=== PATIENT | male | born 1940 | race Caucasian/White ===

== ENCOUNTER 2018-05-31 08:44 | Emergency (ER) | payer MEDICARE, OTHER ==
[2018-05-31] MEDS ORDERED: Famotidine TAB* 20 MG PO ONE (08:57)
[2018-05-31] MEDS ORDERED: Al Hydrox/Mg Hydrox/Simet LIQ* 30 ML UDC PO ONE (08:57)
[2018-05-31] MEDS ORDERED: Lidocaine 2% VISCOUS* 15 ML UDC PO ONE (08:57)
[2018-05-31] MEDS ORDERED: Pantoprazole IV* 40 MG IV ONE (08:57)
--- NOTE | 2018-05-31 09:04 | ED ---
Abdominal Pain/Male - HPI Summary HPI Summary: Patient is a 77 y/o M w/ c/o upper abdominal pain. Per triage note, upper abd pain onset 1 am.feels nauseated intermittantly.hx of ulcers in the past. Pain is rated 5/10 and described as sharp in the room. Pain is not noted to radiate. He notes pain has lessened since onset. Patient states he has had abdominal pain previously but notes that he has not had "this type" of pain and not at such a high intensity. He denies constipation diarrhea, fever, and dark/maroon colored stool. He reports medication fo HTN. No major abdominal surgeries are reported. No Hx of diverticulitis in patient is noted. He states ulcer disease was in 1961. Patient denies smoking. Nothing is noted to aggravate/alleviate Sx. Home medications and allergies reviewed. - History of Current Complaint Chief Complaint: EDAbdPain Stated Complaint: ABD PAIN Time Seen by Provider: 05/31/18 08:58 Hx Obtained From: Patient Onset/Duration: Lasting Hours - onset 0100, Still Present - has gradually improved Timing: Constant Severity Currently: Moderate - 5/10 Pain Intensity: 5 Pain Scale Used: 0-10 Numeric - 5/10 Location: Epigastric Radiates: No Character: Sharp Associated Signs And Symptoms: Positive: Other - NEGATIVE: dark/maroon colored stool. Negative: Fever, Constipation, Diarrhea - Allergies/Home Medications Allergies/Adverse Reactions: Allergies Allergy/AdvReac Type Severity Reaction Status Date / Time Penicillins Allergy Vomiting Verified 05/31/18 08:52 PMH/Surg Hx/FS Hx/Imm Hx GI History: Reports: Hx Ulcer Denies: Hx Diverticulosis Opthamlomology History: Denies: Hx Legally Blind Infectious Disease History: No Infectious Disease History: Denies: Traveled Outside the [place] in Last 30 Days - Family History Known Family History: Negative: Blood Disorder - Social History Alcohol Use: None Substance Use Type: Reports: None Smoking Status (MU): Never Smoked Tobacco Review of Systems Negative: Fever Positive: Abdominal Pain - upper, Other - NEGATIVE: constipation, dark/maroon colored stool . Negative: Diarrhea All Other Systems Reviewed And Are Negative: Yes Physical Exam - Summary Physical Exam Summary: Appearance: Well appearing, no pain distress Skin: warm, dry, reflects adequate perfusion Head/face: normal Eyes: EOMI, BOUBACAR ENT: normal Neck: supple, non-tender Respiratory: CTA, breath sounds present Cardiovascular: RRR, pulses symmetrical Abdomen: non-tender, soft Bowel Sounds: present Musculoskeletal: normal, strength/ROM intact; 2+ lower extremity symmetric edema Neuro: normal, sensory motor intact, A&Ox3 Triage Information Reviewed: Yes Vital Signs On Initial Exam: Initial Vitals Temp Pulse Resp BP Pulse Ox 97.7 F 71 18 157/74 96 05/31/18 08:47 05/31/18 08:47 05/31/18 08:47 05/31/18 08:47 05/31/18 08:47 Vital Signs Reviewed: Yes Diagnostics - Vital Signs Vital Signs Temp Pulse Resp BP Pulse Ox 05/31/18 08:47 97.7 F 71 18 157/74 96 - Laboratory Result Diagrams: 05/31/18 09:12 05/31/18 09:12 Lab Statement: Any lab studies that have been ordered have been reviewed, and results considered in the medical decision making process. - Radiology abdomen x-ray Xray Interpretation: No Acute Changes Radiology Interpretation Completed By: Radiologist - no evidence for obstruction. This report was reviewed by ED physician. - CT CT abd/pel CT Interpretation Completed By: Radiologist - IMPRESSION: SCATTERED DIVERTICULA BUT NO CT EVIDENCE OF ACUTE DIVERTICULITIS. NO MASS OR INFLAMMATORY CHANGES. MILD BPH WITH NODULAR CONFIGURATION. THIS REPORT WAS REVIEWED BY ED PHYSICIAN. - EKG 0903 Cardiac Rate: NL - rate of 71 bpm EKG Rhythm: Sinus Rhythm ST Segment: Normal EKG Interpretation: normal axis, normal intervals Re-Evaluation - Re-Evaluation First Eval Re-Evaluation Time: 11:38 Change: Improved Comment: Patient is feeling better. Discussed results of labs and tests with patient. He will be discharged to home. Patient is agreeable with this plan. Abdominal Pain Fem Course/Dx - Course Course Of Treatment: Patient with diffuse abdominal pain that is now greatly improved. His KUB is unremarkable but his white count was grossly elevated. Therefore, a CT was performed to rule out diverticulitis. He has multiple diverticula but no obvious diverticulitis. Given his elevated white count he will be placed on antibiotics and followed up closely by his primary care physician. He was discharged otherwise in good condition. - Diagnoses Differential Diagnosis/HQI/PQRI: Abdominal Aortic Aneurysm, Appendicitis, Bowel Obstruction, Constipation, Diverticulitis, Gall Bladder Disease, Pancreatitis, Peptic Ulcer Disease Provider Diagnoses: Leucocytosis, Acute generalized abdominal pain Discharge - Sign-Out/Discharge Documenting (check all that apply): Patient Departure - discharge - Discharge Plan Condition: Improved Disposition: HOME Prescriptions: Ciprofloxacin HCl [Cipro] 500 mg PO BID #14 tablet Docusate Sodium [Colace] 100 mg PO BID #20 capsule Hyoscyamine Sulfate [Levsin/Sl] 0.125 mg SL Q4H PRN #30 sub PRN Reason: abdominal cramping metroNIDAZOLE [Flagyl 500 MG TAB] 500 mg PO TID #21 tab Patient Education Materials: Acute Abdominal Pain (ED) Referrals: Shaggy Arrieta DO [Primary Care Provider] - Additional Instructions: [place] diet, drink plenty of fluids. Return with fever, vomiting, increased pain , worse or other concerns as discussed. Call your doctor to schedule follow-up today. - Billing Disposition and Condition Condition: IMPROVED Disposition: Home - Attestation Statements Document Initiated by Scribe: Yes Documenting Scribe: Good Tsai Provider For Whom Negra is Documenting (Include Credential): Israel Brown MD Scribe Attestation: Good Morales, scribed for Israel Brown MD on 05/31/18 at 1233. Scribe Documentation Reviewed: Yes Provider Attestation: The documentation as recorded by the Good vela accurately reflects the service I personally performed and the decisions made by me, Israel Brown MD
[2018-05-31 09:27] LABS: ABS Basophils 0.1 10^3/ul (0-0.2); ABS Eosinophils 0 10^3/ul (0-0.6); ABS Lymphocytes 0.9 10^3/ul (1.0-4.8); ABS Monocytes 0.6 10^3/ul (0-0.8); ABS Neutrophils 14.8 10^3/ul (1.5-7.7); ABS Nucleated RBC 0 10^3/ul; Eosinophil % 0.3 % (0-6); Hematocrit 51 % (42-52); Hemoglobin 16.8 g/dl (14.0-18.0); Lymphocyte % 5.4 % (25-47); Mean Corpuscular HGB Conc 33 g/dl (31-36); Mean Corpuscular Hemoglobin 27 pg (27-31); Mean Corpuscular Volume 81 fL (80-94); Mean Platelet Volume 7.3 um3 (7.4-10.4); Nucleated Red Blood Cells % 0.1; Platelet Count 226 10^3/ul (150-450); Red Blood Count 6.31 10^6/ul (4.00-5.40); Red Cell Distribution Width 16 % (10.5-15); White Blood Count 16.4 10^3/ul (3.5-10.8)
[2018-05-31 09:45] LABS: EGFR Non-African American 64.6 (>60)
--- NOTE | 2018-05-31 09:48 | RAD ---
INDICATION: Abdominal cramping, now resolved. COMPARISON: Comparison is made with a prior study from July 07, 2004. TECHNIQUE: Frontal supine films of the abdomen were obtained. FINDINGS: The small bowel and colon appear nondistended. No significant abnormal calcifications are seen. IMPRESSION: NO EVIDENCE FOR OBSTRUCTION.
[2018-05-31 09:54] LABS: INR 0.97 (0.77-1.02)
[2018-05-31] MEDS ORDERED: Iohexol 300* (CONTRAST) 10 ML SDV IV ONE (10:16)
--- NOTE | 2018-05-31 11:10 | RAD ---
INDICATION: Abdominal pain. Question diverticulitis COMPARISON: None TECHNIQUE: Axial source images were obtained from the hemidiaphragms to the symphysis pubis following administration of oral and intravenous contrast. 100 mL Omnipaque 300 was utilized. Coronal and sagittal reconstructed images were acquired. Lung bases: The lung bases are clear. Liver: The liver is normal in size. There are no masses. There is no ductal dilatation. Gallbladder: There are no calcified gallstones. There is no evidence of wall thickening or pericholecystic fluid. Spleen: The spleen is normal in size. There are no masses. Pancreas: There is no focal pancreatic mass or ductal dilatation. Adrenal glands: There is no evidence of adrenal mass. Kidneys: The kidneys are normal in size and position. There are prompt nephrograms and there is prompt excretion bilaterally. There is a 2.4 cm right renal cyst. There is no evidence of nephrolithiasis. Adenopathy: There is no evidence of adenopathy by size criteria. Fluid collections: There are no free or localized fluid collections. Vessels:There are no significant atherosclerotic changes involving the aorta. There is no focal aneurysm. The iliac vessels are normal in caliber. The IVC appears normal. GI tract: There are no acute CT bowel findings. There is no obstruction. The stomach and small bowel appear normal. The lower GI tract remarkable for scattered diverticula but no CT evidence of acute diverticulitis. The cecum, ileocecal valve, and terminal ileum appear normal. The appendix is visualized and appear normal. Pelvic organs: The prostate has nodular configuration and impresses upon the floor the bladder. The prostate is mildly enlarged Bladder: There are no bladder masses. Abdominal and pelvic soft tissues: The extraperitoneal abdominal and pelvic soft tissues appear normal.. Osseous structures: There are no acute osseous findings. Other: None IMPRESSION: SCATTERED DIVERTICULA BUT NO CT EVIDENCE OF ACUTE DIVERTICULITIS. NO MASS OR INFLAMMATORY CHANGES. MILD BPH WITH NODULAR CONFIGURATION.
[2018-05-31 12:21] VITALS: BP 169/85
== END 2018-05-31 12:25 | disposition home or self-care (01) ==
LOC: ED 08:44
DX: D72.829 Elevated white blood cell count, unspecified (principal); R10.10 Upper abdominal pain, unspecified
CPT/HCPCS: 36415; 74018; 74177; 80053; 83605; 83690; 85025; 85610; 86140; 93005; 96374; 99283; A9270-GY; Q9967

== ENCOUNTER 2020-04-14 21:18 | Inpatient (IN) ==
[~2020-04-14 21:18] MED LIST: Azithromycin 500 mg/250 ml NS 500 MG/250 ML BAG IVPB SCH; cefTRIAXone 1 gm/50 mL NS BAG 1 GM/50 ML BAG IVPB SCH
[2020-04-14] MEDS ORDERED: Cefepime 2 GM in NS 0.9% 50 ML 50 ML IVPB ONE (21:44)
[2020-04-14] MEDS ORDERED: metroNIDAZOLE IV 500 MG/100ML 500 MG/100 ML BAG IVPB ONE (21:44)
[2020-04-14] MEDS ORDERED: Vancomycin 1,500 MG in NS 0.9% 250 ml 250 ML IVPB ONE (22:00)
[2020-04-14 22:05] LABS: ABS Eosinophils 0.1 10^3/ul (0-0.6); ABS Lymphocytes 0.5 10^3/ul (1.0-4.8); ABS Monocytes 0.4 10^3/ul (0-0.8); ABS Neutrophils 19.4 10^3/ul (1.5-7.7); Eosinophil % 0.5 %; Hematocrit 49 % (42-52); Hemoglobin 16.2 g/dL (14.0-18.0); Lymphocyte % 2.3 %; Mean Corpuscular HGB Conc 33 g/dL (31-36); Mean Corpuscular Hemoglobin 27 pg (27-31); Mean Corpuscular Volume 81 fL (80-94); Mean Platelet Volume 7.3 fL (7.4-10.4); Nucleated Red Blood Cells % 0.1; Platelet Count 201 10^3/uL (150-450); Red Blood Count 5.98 10^6 /uL (4.18-5.48); Red Cell Distribution Width 16 % (10-15); White Blood Count 20.4 10^3/uL (3.5-10.8)
[2020-04-14 22:14] LABS: Activated Partial Thrombo Time 26.7 seconds (26.0-38.0); INR 1.16 (0.82-1.09)
[2020-04-14 22:22] LABS: Albumin 4.1 g/dL (3.2-5.2); Albumin/Globulin Ratio 1.2 (1-3); BUN/Creatinine Ratio 16.7 (8-20); C Reactive Protein 9.16 mg/L (<8.01); Calcium 10.1 mg/dL (8.6-10.3); EGFR African American 63.6 (>60); EGFR Non-African American 52.6 (>60); Globulin 3.3 g/dL (2-4); Total Bilirubin 0.8 mg/dL (0.2-1.0); Total Protein 7.4 g/dL (6.4-8.9)
[2020-04-14 22:24] LABS: Urine Appearance Clear; Urine Bilirubin Negative (Negative); Urine Blood Negative (Negative); Urine Color Yellow; Urine Glucose Negative (Negative); Urine Ketones Negative (Negative); Urine Nitrite Negative (Negative); Urine Protein 1+(30 mg/dL) (Negative); Urine Specific Gravity 1.013 (1.010-1.030); Urine Urobilinogen Negative (Negative)
[2020-04-14 22:31] LABS: Urine Bacteria Absent (Absent); Urine Red Blood Cell Absent (Absent); Urine White Blood Cell Absent (Absent)
[2020-04-14] MEDS: Albuterol/Ipratropium NEB.SOL (2.5/0.5 MG) 3 ML NEB.SOLN INH PRN (22:31)
[2020-04-14] MEDS ORDERED: Piperacillin/Tazobac ADVAN 3.375 GM in NS 0.9% 100 ml BAG 100 ML IVPB ONE (22:41)
[2020-04-14] MEDS ORDERED: NS 0.9% 1000 ml BAG 1,000 ML IV ONE ×2 (22:45→22:46)
[2020-04-14 23:12] LABS: Potassium 4.2 mmol/L (3.5-5.0)
[2020-04-14] MEDS ORDERED: Iodixanol (CONTRAST) 320 MG/ML 100 ML SDV IV ONE (23:39)
[2020-04-14] MEDS ORDERED: Albuterol/Ipratropium NEB.SOL (2.5/0.5 MG) 3 ML NEB.SOLN INH PRN (23:49)
[2020-04-15] MEDS ORDERED: cefTRIAXone 1 gm/50 mL NS BAG 1 GM/50 ML BAG IVPB SCH (02:00)
[2020-04-15] MEDS: Enoxaparin 40 MG/0.4 ML SYR SUBCUT SCH (02:09)
[2020-04-15] MEDS: NS 0.9% 1000 ml BAG 1,000 ML IV SCH ×2 (02:09→13:57)
[2020-04-15] MEDS: Azithromycin 500 mg/250 ml NS 500 MG/250 ML BAG IVPB SCH (03:23)
[2020-04-15 15:39] LABS: Hematocrit 45 % (42-52); Hemoglobin 14.5 g/dL (14.0-18.0); Mean Corpuscular HGB Conc 32 g/dL (31-36); Mean Corpuscular Hemoglobin 27 pg (27-31); Mean Corpuscular Volume 83 fL (80-94); Mean Platelet Volume 7.5 fL (7.4-10.4); Platelet Count 164 10^3/uL (150-450); Red Blood Count 5.38 10^6 /uL (4.18-5.48); Red Cell Distribution Width 16 % (10-15); White Blood Count 27.3 10^3/uL (3.5-10.8)
[2020-04-15 16:20] LABS: ABS Basophils 0.1 10^3/ul (0-0.2); ABS Lymphocytes 0.3 10^3/ul (1.0-4.8); ABS Monocytes 0.9 10^3/ul (0-0.8); ABS Neutrophils 25.9 10^3/ul (1.5-7.7); Lymphocyte % 1.2 %
[2020-04-15 16:24] LABS: BUN/Creatinine Ratio 19.1 (8-20); Calcium 8.9 mg/dL (8.6-10.3); EGFR African American 74.6 (>60); EGFR Non-African American 61.7 (>60); Potassium 4.5 mmol/L (3.5-5.0)
[2020-04-15] MEDS: cefTRIAXone 2 GM ADDV.VIAL 2 GM in NS 0.9% 100 ml BAG 100 ML IV SCH (21:28)
[2020-04-16] MEDS: Nystatin TOP POWDER 15 GM BTL TOPICAL SCH ×4 (01:31→20:39)
[2020-04-16] MEDS: Azithromycin 500 mg/250 ml NS 500 MG/250 ML BAG IVPB SCH (02:38)
[2020-04-16] MEDS: Enoxaparin 40 MG/0.4 ML SYR SUBCUT SCH (02:38)
[2020-04-16] MEDS: NS 0.9% 1000 ml BAG 1,000 ML IV SCH ×2 (04:35→18:24)
[2020-04-16 09:02] LABS: ABS Lymphocytes 0.6 10^3/ul (1.0-4.8); ABS Monocytes 1.1 10^3/ul (0-0.8); ABS Neutrophils 17.7 10^3/ul (1.5-7.7); Eosinophil % 0.1 %; Hematocrit 44 % (42-52); Lymphocyte % 2.9 %; Mean Corpuscular HGB Conc 32 g/dL (31-36); Mean Corpuscular Hemoglobin 27 pg (27-31); Mean Corpuscular Volume 83 fL (80-94); Mean Platelet Volume 7.8 fL (7.4-10.4); Platelet Count 148 10^3/uL (150-450); Red Blood Count 5.24 10^6 /uL (4.18-5.48); Red Cell Distribution Width 16 % (10-15); White Blood Count 19.4 10^3/uL (3.5-10.8)
[2020-04-16 09:24] LABS: BUN/Creatinine Ratio 19.8 (8-20); C Reactive Protein 193.13 mg/L (<8.01); Calcium 8.8 mg/dL (8.6-10.3); EGFR African American 77.7 (>60); EGFR Non-African American 64.2 (>60); Potassium 4.2 mmol/L (3.5-5.0)
[2020-04-16] MEDS ORDERED: Perflutren Lipid Microsphere 3 ML VIAL ONE (11:11)
[2020-04-16] MEDS ORDERED: Furosemide 40 mg/4 ml IV VIAL IV SLOW PU ONE (19:00)
[2020-04-16] MEDS: cefTRIAXone 2 GM ADDV.VIAL 2 GM in NS 0.9% 100 ml BAG 100 ML IV SCH (20:29)
[2020-04-17] MEDS: Enoxaparin 40 MG/0.4 ML SYR SUBCUT SCH (02:51)
[2020-04-17 07:45] LABS: ABS Eosinophils 0.2 10^3/ul (0-0.6); ABS Lymphocytes 0.6 10^3/ul (1.0-4.8); ABS Monocytes 0.9 10^3/ul (0-0.8); ABS Neutrophils 14.6 10^3/ul (1.5-7.7); Eosinophil % 1.2 %; Hematocrit 41 % (42-52); Hemoglobin 13.2 g/dL (14.0-18.0); Lymphocyte % 3.6 %; Mean Corpuscular HGB Conc 33 g/dL (31-36); Mean Corpuscular Hemoglobin 27 pg (27-31); Mean Corpuscular Volume 83 fL (80-94); Mean Platelet Volume 8.3 fL (7.4-10.4); Platelet Count 134 10^3/uL (150-450); Red Blood Count 4.89 10^6 /uL (4.18-5.48); Red Cell Distribution Width 17 % (10-15); White Blood Count 16.3 10^3/uL (3.5-10.8)
[2020-04-17 07:48] LABS: Calcium 8.3 mg/dL (8.6-10.3)
[2020-04-17 07:54] LABS: BUN/Creatinine Ratio 23.3 (8-20); C Reactive Protein 132.99 mg/L (<8.01); EGFR African American 73.9 (>60); EGFR Non-African American 61.1 (>60)
[2020-04-17 09:46] LABS: Potassium 4.6 mmol/L (3.5-5.0)
[2020-04-17] MEDS: Nystatin TOP POWDER 15 GM BTL TOPICAL SCH ×3 (10:31→21:41)
[2020-04-17] MEDS: cefTRIAXone 2 GM ADDV.VIAL 2 GM in NS 0.9% 100 ml BAG 100 ML IV SCH (21:43)
[2020-04-18] MEDS: Enoxaparin 40 MG/0.4 ML SYR SUBCUT SCH (02:12)
[2020-04-18 06:59] LABS: ABS Basophils 0.1 10^3/ul (0-0.2); ABS Eosinophils 0.4 10^3/ul (0-0.6); ABS Lymphocytes 0.9 10^3/ul (1.0-4.8); ABS Neutrophils 11.3 10^3/ul (1.5-7.7); Eosinophil % 2.6 %; Hematocrit 41 % (42-52); Hemoglobin 13.5 g/dL (14.0-18.0); Lymphocyte % 6.4 %; Mean Corpuscular HGB Conc 33 g/dL (31-36); Mean Corpuscular Hemoglobin 27 pg (27-31); Mean Corpuscular Volume 83 fL (80-94); Nucleated Red Blood Cells % 0.1; Platelet Count 166 10^3/uL (150-450); Red Blood Count 4.97 10^6 /uL (4.18-5.48); Red Cell Distribution Width 16 % (10-15); White Blood Count 13.6 10^3/uL (3.5-10.8)
[2020-04-18 07:22] LABS: C Reactive Protein 97.48 mg/L (<8.01); Calcium 9.2 mg/dL (8.6-10.3); EGFR African American 82.9 (>60); EGFR Non-African American 68.5 (>60)
[2020-04-18] MEDS ORDERED: Furosemide 40 mg/4 ml IV VIAL IV SLOW PU ONE (08:10)
[2020-04-18] MEDS: Nystatin TOP POWDER 15 GM BTL TOPICAL SCH ×3 (09:15→22:02)
[2020-04-18] MEDS: Albuterol/Ipratropium NEB.SOL (2.5/0.5 MG) 3 ML NEB.SOLN INH PRN (15:50)
[2020-04-18] MEDS: cefTRIAXone 2 GM ADDV.VIAL 2 GM in NS 0.9% 100 ml BAG 100 ML IV SCH (22:02)
[2020-04-19] MEDS: Enoxaparin 40 MG/0.4 ML SYR SUBCUT SCH (01:56)
[2020-04-19 07:01] LABS: Hematocrit 42 % (42-52); Hemoglobin 13.9 g/dL (14.0-18.0); Mean Corpuscular HGB Conc 33 g/dL (31-36); Mean Corpuscular Hemoglobin 27 pg (27-31); Mean Corpuscular Volume 82 fL (80-94); Mean Platelet Volume 7.2 fL (7.4-10.4); Platelet Count 183 10^3/uL (150-450); Red Blood Count 5.15 10^6 /uL (4.18-5.48); Red Cell Distribution Width 16 % (10-15)
[2020-04-19 08:56] LABS: ABS Eosinophils 0.5 10^3/ul (0-0.6); ABS Monocytes 1.1 10^3/ul (0-0.8); ABS Neutrophils 7.3 10^3/ul (1.5-7.7); Eosinophil % 4.7 %; Lymphocyte % 10.1 %; Nucleated Red Blood Cells % 0.1
[2020-04-19] MEDS: Nystatin TOP POWDER 15 GM BTL TOPICAL SCH ×3 (10:07→19:43)
[2020-04-19] MEDS: cefTRIAXone 2 GM ADDV.VIAL 2 GM in NS 0.9% 100 ml BAG 100 ML IV SCH (19:39)
[2020-04-20] MEDS: Enoxaparin 40 MG/0.4 ML SYR SUBCUT SCH (00:49)
[2020-04-20 08:54] LABS: Hematocrit 49 % (42-52); Hemoglobin 15.8 g/dL (14.0-18.0); Mean Corpuscular HGB Conc 33 g/dL (31-36); Mean Corpuscular Hemoglobin 27 pg (27-31); Mean Corpuscular Volume 83 fL (80-94); Mean Platelet Volume 7.4 fL (7.4-10.4); Platelet Count 242 10^3/uL (150-450); Red Blood Count 5.89 10^6 /uL (4.18-5.48); Red Cell Distribution Width 16 % (10-15); White Blood Count 12.8 10^3/uL (3.5-10.8)
[2020-04-20] MEDS: Nystatin TOP POWDER 15 GM BTL TOPICAL SCH ×3 (10:19→21:45)
[2020-04-20 11:42] LABS: ABS Basophils 0.1 10^3/ul (0-0.2); ABS Eosinophils 0.6 10^3/ul (0-0.6); ABS Lymphocytes 1.2 10^3/ul (1.0-4.8); ABS Monocytes 1.3 10^3/ul (0-0.8); ABS Neutrophils 9.6 10^3/ul (1.5-7.7); Eosinophil % 4.7 %; Lymphocyte % 9.7 %; Nucleated Red Blood Cells % 0.2
[2020-04-21] MEDS: Enoxaparin 40 MG/0.4 ML SYR SUBCUT SCH (03:31)
[2020-04-21 08:01] LABS: ABS Basophils 0.1 10^3/ul (0-0.2); ABS Eosinophils 0.6 10^3/ul (0-0.6); ABS Neutrophils 9.2 10^3/ul (1.5-7.7); Hematocrit 44 % (42-52); Hemoglobin 14.4 g/dL (14.0-18.0); Lymphocyte % 8.7 %; Mean Corpuscular HGB Conc 33 g/dL (31-36); Mean Corpuscular Hemoglobin 27 pg (27-31); Mean Corpuscular Volume 82 fL (80-94); Nucleated Red Blood Cells % 0.1; Platelet Count 239 10^3/uL (150-450); Red Blood Count 5.35 10^6 /uL (4.18-5.48); Red Cell Distribution Width 16 % (10-15); White Blood Count 11.9 10^3/uL (3.5-10.8)
[2020-04-21 08:25] VITALS: BP 136/77
[2020-04-21] MEDS: Nystatin TOP POWDER 15 GM BTL TOPICAL SCH ×2 (09:36→13:52)
== END 2020-04-21 14:40 | disposition home or self-care (01) | DRG 872 ==
LOC: ED 21:18 → MED 21:18 → OBSVTOIN 04-15 01:11 → MED 04-16 01:52
PROVIDERS: ADMIT Hospitalist; ATTEND Internal Medicine

== ENCOUNTER 2021-10-01 22:29 | Inpatient (IN) ==
[2021-10-01] MEDS ORDERED: Cefepime 2 GM in Dextrose 2 GM/50 ML BAG IV ONE (22:44)
[2021-10-01] MEDS ORDERED: Vancomycin 1,250 MG in NS 0.9% 250 ml 250 ML IVPB ONE (23:30)
[2021-10-02] MEDS ORDERED: LORazepam 2 mg VIAL 1 ml ONE (01:07)
[2021-10-02] MEDS ORDERED: LORazepam 2 mg VIAL 1 ml IV PUSH ONE (01:08)
[2021-10-02] MEDS ORDERED: Lorazepam PYXIS KEY PRN (01:08)
[2021-10-02 01:33] LABS: ABS Basophils 0.1 10^3/ul (0-0.2); ABS Lymphocytes 0.3 10^3/ul (1.0-4.8); ABS Monocytes 1.1 10^3/ul (0-0.8); ABS Neutrophils 15.4 10^3/ul (1.5-7.7); Eosinophil % 0.1 %; Hematocrit 49 % (42-52); Hemoglobin 16.1 g/dL (14.0-18.0); Lymphocyte % 1.8 %; Mean Corpuscular HGB Conc 33 g/dL (31-36); Mean Corpuscular Hemoglobin 27 pg (27-31); Mean Corpuscular Volume 82 fL (80-94); Mean Platelet Volume 7.6 fL (7.4-10.4); Nucleated Red Blood Cells % 0.1; Platelet Count 236 10^3/uL (150-450); Red Blood Count 5.96 10^6 /uL (4.18-5.48); Red Cell Distribution Width 16 % (10-15); White Blood Count 16.9 10^3/uL (3.5-10.8)
[2021-10-02 01:50] LABS: Activated Partial Thrombo Time 30.9 seconds (26.0-38.0); Albumin/Globulin Ratio 1.3 (1-3); C Reactive Protein 70.16 mg/L (<8.01); Fibrinogen 424.2 mg/dL (110.8-404.3); Globulin 3.2 g/dL (2-4); INR 1.33 (0.86-1.15); Total Bilirubin 0.8 mg/dL (0.2-1.0); Total Protein 7.2 g/dL (6.4-8.9); eGFR CKD-EPI 56.8 (>60)
[2021-10-02 01:52] LABS: Troponin I 0.02 ng/mL (<0.03)
[2021-10-02 02:22] LABS: Potassium 4.3 mmol/L (3.5-5.0)
[2021-10-02 03:54] LABS: Urine Appearance Clear; Urine Bilirubin Negative (Negative); Urine Blood 1+ (Negative); Urine Color Yellow; Urine Glucose Negative (Negative); Urine Ketones Negative (Negative); Urine Nitrite Negative (Negative); Urine Protein 2+(100 mg/dL) (Negative); Urine Specific Gravity 1.016 (1.002-1.030); Urine Urobilinogen Negative (Negative)
[2021-10-02 03:55] LABS: Urine Bacteria Absent (Absent); Urine Red Blood Cell 2+(6-10/hpf) (Absent); Urine Squamous Epithelial Cell Present (Absent); Urine White Blood Cell Trace(0-5/hpf) (Absent)
[2021-10-02] MEDS ORDERED: Remdesivir 100 mg Vial 200 MG in NS 0.9% 250 ml 210 ML IV ONE (04:20)
[2021-10-02] MEDS: Enoxaparin 40 MG/0.4 ML SYR SUBCUT SCH (05:15)
[2021-10-02] MEDS ORDERED: Lactated Ringers 1000 ml BAG 1,000 ML IV SCH (12:00)
[2021-10-03 06:33] LABS: Hematocrit 47 % (42-52); Mean Corpuscular HGB Conc 32 g/dL (31-36); Mean Corpuscular Hemoglobin 27 pg (27-31); Mean Corpuscular Volume 84 fL (80-94); Red Blood Count 5.61 10^6 /uL (4.18-5.48); Red Cell Distribution Width 16 % (10-15); White Blood Count 12.3 10^3/uL (3.5-10.8)
[2021-10-03 06:44] LABS: INR 1.34 (0.86-1.15)
[2021-10-03 06:50] LABS: Albumin 3.3 g/dL (3.2-5.2); CO2 Carbon Dioxide 23 mmol/L (22-32); Chloride 105 mmol/L (101-111); Magnesium 1.9 mg/dL (1.9-2.7); Sodium 132 mmol/L (135-145)
[2021-10-03 06:56] LABS: ALT 12 U/L (7-52); Albumin/Globulin Ratio 1.2 (1-3); Alkaline Phosphatase 46 U/L (35-149); Blood Urea Nitrogen 24 mg/dL (6-24); Globulin 2.8 g/dL (2-4); Glucose 146 mg/dL (70-100); Total Protein 6.1 g/dL (6.4-8.9)
[2021-10-03 07:02] LABS: Mean Platelet Volume 7.4 fL (7.4-10.4); Platelet Count 105 10^3/uL (150-450)
[2021-10-03 07:22] LABS: Anion Gap 4 mmol/L (2-11)
[2021-10-03] MEDS ORDERED: Magnesium Sulfate 2 gm BAG 2 GM/50 ML BAG IVPB ONE (08:01)
[2021-10-03] MEDS: Enoxaparin 40 MG/0.4 ML SYR SUBCUT SCH (08:37)
[2021-10-03 08:56] LABS: Potassium Redraw 4.5 mmol/L (3.5-5.0)
[2021-10-03] MEDS: Remdesivir 100 mg Vial 100 MG in NS 0.9% 250 ml 230 ML IV SCH (11:04)
[2021-10-04 06:42] LABS: Hematocrit 47 % (42-52); Hemoglobin 15.6 g/dL (14.0-18.0); INR 1.29 (0.86-1.15); Mean Corpuscular HGB Conc 33 g/dL (31-36); Mean Corpuscular Hemoglobin 27 pg (27-31); Mean Corpuscular Volume 83 fL (80-94); Mean Platelet Volume 7.5 fL (7.4-10.4); Platelet Count 206 10^3/uL (150-450); Red Blood Count 5.74 10^6 /uL (4.18-5.48); Red Cell Distribution Width 16 % (10-15); White Blood Count 15.7 10^3/uL (3.5-10.8)
[2021-10-04 06:59] LABS: Albumin 3.4 g/dL (3.2-5.2); Albumin/Globulin Ratio 1.3 (1-3); Globulin 2.7 g/dL (2-4); Magnesium 2.2 mg/dL (1.9-2.7); Potassium 4.4 mmol/L (3.5-5.0); Total Bilirubin 0.5 mg/dL (0.2-1.0); Total Protein 6.1 g/dL (6.4-8.9)
[2021-10-04] MEDS: Enoxaparin 40 MG/0.4 ML SYR SUBCUT SCH (08:33)
[2021-10-04] MEDS: Remdesivir 100 mg Vial 100 MG in NS 0.9% 250 ml 230 ML IV SCH (08:36)
[2021-10-04 15:31] VITALS: BP 143/52
== END 2021-10-04 16:30 | disposition home or self-care (01) | DRG 871 ==
LOC: ED 22:29 → EDHOLD 22:29 → SUATTDRO 10-02 04:14 → MED 10-02 06:29
PROVIDERS: ADMIT Internal Medicine; ATTEND Internal Medicine

== ENCOUNTER 2023-03-18 22:05 | Inpatient (IN) ==
[2023-03-18 23:04] LABS: Hematocrit 48.4 % (38-53); Hemoglobin 15.6 g/dL (13.2-16.3); Mean Corpuscular Hemoglobin 26.4 pg (27-33); Mean Corpuscular Hgb Conc 32.3 g/dL (31-36); Mean Corpuscular Volume 81.7 fL (80-97); Platelet Count 234 10^3/uL (150-450); Red Blood Count 5.93 10^6/uL (4.06-5.63); Red Cell Distribution Width 16.4 % (12-17); White Blood Count 22.3 10^3/uL (3.6-10.2)
[2023-03-18 23:12] LABS: Activated Partial Thrombo Time 29.2 seconds (26.0-38.0); INR 1.26 (0.88-1.18)
[2023-03-18] MEDS ORDERED: cefTRIAXone 1 gm/50 mL D5W 1 GM/50 ML BAG IV ONE (23:18)
[2023-03-18 23:20] LABS: ALT 12 U/L (7-52); Albumin 3.9 g/dL (3.2-5.2); Albumin/Globulin Ratio 1.2 (1-3); Alkaline Phosphatase 59 U/L (35-149); Blood Urea Nitrogen 19 mg/dL (6-24); C Reactive Protein 9.98 mg/L (<8.01); CO2 Carbon Dioxide 28 mmol/L (22-32); Calcium 9.7 mg/dL (8.6-10.3); Chloride 102 mmol/L (101-111); Creatinine, Serum 1.18 mg/dL (0.67-1.17); Globulin 3.2 g/dL (2-4); Glucose 135 mg/dL (70-100); Sodium 136 mmol/L (135-145); Total Protein 7.1 g/dL (6.4-8.9); eGFR CKD-EPI 62.4 (>60)
[2023-03-18 23:26] LABS: Anion Gap 6 mmol/L (2-16); High Sens Troponin Baseline 7 pg/mL (<20)
[2023-03-18 23:34] LABS: RBC Morphology Normal (Normal)
[2023-03-18 23:35] LABS: ABS Basophils 0.1 10^3/uL (0.0-0.1); ABS Eosinophils 0.3 10^3/uL (0.0-0.5); ABS Lymphocytes 0.5 10^3/uL (1.0-4.8); ABS Monocytes 1.3 10^3/uL (0.0-1.1); ABS Neutrophils 20.1 10^3/uL (1.5-7.6); ABS Nucleated RBC 0.01 10^3/ul; Eosinophil % 1.2 %; Lymphocyte % 2.3 %
[2023-03-18] MEDS ORDERED: NS 0.9% 1000 ml BAG 2,000 ML IV ONE (23:38)
[2023-03-19 00:19] LABS: High Sensitivity Troponin 1 Hr 8 pg/mL (<20)
[2023-03-19 00:28] LABS: Potassium Redraw 4.9 mmol/L (3.5-5.0)
[2023-03-19] MEDS ORDERED: Furosemide 40 mg/4 ml IV VIAL IV SLOW PU ONE (01:30)
[2023-03-19 02:56] LABS: Urine Appearance Clear; Urine Bilirubin Negative (Negative); Urine Blood Negative (Negative); Urine Color Straw; Urine Glucose Negative (Negative); Urine Ketones Negative (Negative); Urine Nitrite Negative (Negative); Urine Protein 1+(30 mg/dL) (Negative); Urine Specific Gravity 1.008 (1.002-1.030); Urine Urobilinogen Negative (Negative)
[2023-03-19] MEDS ORDERED: Polyethylene Glycol 3350 17 GM PACKET PO PRN (03:02)
[2023-03-19] MEDS ORDERED: Al Hydrox/Mg Hydrox/Simet LIQ 30 ML UDC PO PRN (03:02)
[2023-03-19 03:42] LABS: Urine Bacteria Absent (Absent); Urine Red Blood Cell Trace(0-2/hpf) (Absent); Urine White Blood Cell Trace(0-5/hpf) (Absent)
[2023-03-19] MEDS ORDERED: Albuterol/Ipratropium NEB.SOL (2.5/0.5 MG) 3 ML NEB.SOLN INH ONE (03:45)
[2023-03-19] MEDS: Enoxaparin 40 MG/0.4 ML SYR SUBCUT SCH (03:59)
[2023-03-19] MEDS ORDERED: Vancomycin per Pharmacy 1 EA NOTE FOLLOW UP PRN (04:13)
[2023-03-19] MEDS ORDERED: Iohexol 350 (CONTRAST) 500 ML MDV IV ONE (04:18)
[2023-03-19] MEDS ORDERED: Vancomycin 1,500 MG in NS 0.9% 250 ml 250 ML IVPB ONE ×2 (04:30→05:00)
[2023-03-19 08:33] LABS: ABS Basophils 0.1 10^3/uL (0.0-0.1); ABS Lymphocytes 0.6 10^3/uL (1.0-4.8); ABS Monocytes 1.3 10^3/uL (0.0-1.1); ABS Neutrophils 22.6 10^3/uL (1.5-7.6); Eosinophil % 0.2 %; Hematocrit 46.1 % (38-53); Lymphocyte % 2.6 %; Mean Corpuscular Hemoglobin 26.9 pg (27-33); Mean Corpuscular Hgb Conc 32.5 g/dL (31-36); Mean Corpuscular Volume 82.8 fL (80-97); Mean Platelet Volume 7.2 fL (7.5-11.2); Platelet Count 202 10^3/uL (150-450); Red Blood Count 5.57 10^6/uL (4.06-5.63); Red Cell Distribution Width 16.3 % (12-17); White Blood Count 24.7 10^3/uL (3.6-10.2)
[2023-03-19 08:47] LABS: Creatinine, Serum 1.08 mg/dL (0.67-1.17); Potassium 4.1 mmol/L (3.5-5.0); eGFR CKD-EPI 69.4 (>60)
[2023-03-19] MEDS ORDERED: Azithromycin 500 mg/250 ml NS 500 MG/250 ML BAG IVPB SCH (11:00)
[2023-03-19] MEDS ORDERED: cefTRIAXone 1 gm/50 mL D5W 1 GM/50 ML BAG IV SCH (23:00)
[2023-03-20] MEDS: Enoxaparin 40 MG/0.4 ML SYR SUBCUT SCH (05:32)
[2023-03-20 06:26] LABS: ABS Basophils 0.1 10^3/uL (0.0-0.1); ABS Eosinophils 0.3 10^3/uL (0.0-0.5); ABS Lymphocytes 1.1 10^3/uL (1.0-4.8); ABS Monocytes 1.2 10^3/uL (0.0-1.1); ABS Neutrophils 9.9 10^3/uL (1.5-7.6); Eosinophil % 2.1 %; Hematocrit 46.9 % (38-53); Hemoglobin 15.4 g/dL (13.2-16.3); Lymphocyte % 8.7 %; Mean Corpuscular Hemoglobin 26.8 pg (27-33); Mean Corpuscular Hgb Conc 32.7 g/dL (31-36); Mean Corpuscular Volume 81.9 fL (80-97); Mean Platelet Volume 7.3 fL (7.5-11.2); Platelet Count 207 10^3/uL (150-450); Red Blood Count 5.72 10^6/uL (4.06-5.63); Red Cell Distribution Width 16.2 % (12-17); White Blood Count 12.6 10^3/uL (3.6-10.2)
[2023-03-20] MEDS ORDERED: Vancomycin 1,500 MG in NS 0.9% 250 ml 250 ML IVPB SCH (06:30)
[2023-03-20 06:46] LABS: Calcium 9.8 mg/dL (8.6-10.3); Potassium 3.9 mmol/L (3.5-5.0); eGFR CKD-EPI 76.1 (>60)
[2023-03-20] MEDS: cefTRIAXone 1 gm/50 mL D5W 1 GM/50 ML BAG IV SCH (13:55)
[2023-03-21] MEDS: Enoxaparin 40 MG/0.4 ML SYR SUBCUT SCH (05:59)
[2023-03-21 06:02] LABS: ABS Basophils 0.1 10^3/uL (0.0-0.1); ABS Eosinophils 0.5 10^3/uL (0.0-0.5); ABS Monocytes 1.2 10^3/uL (0.0-1.1); ABS Neutrophils 8.8 10^3/uL (1.5-7.6); ABS Nucleated RBC 0.02 10^3/ul; Hematocrit 46.9 % (38-53); Hemoglobin 15.3 g/dL (13.2-16.3); Lymphocyte % 8.6 %; Mean Corpuscular Hemoglobin 26.6 pg (27-33); Mean Corpuscular Hgb Conc 32.6 g/dL (31-36); Mean Corpuscular Volume 81.6 fL (80-97); Nucleated Red Blood Cells % 0.1 /100 WBC (0.0-0.4); Platelet Count 205 10^3/uL (150-450); Red Blood Count 5.74 10^6/uL (4.06-5.63); Red Cell Distribution Width 15.9 % (12-17); White Blood Count 11.5 10^3/uL (3.6-10.2)
[2023-03-21 06:24] LABS: Calcium 9.9 mg/dL (8.6-10.3); Creatinine, Serum 0.99 mg/dL (0.67-1.17); Potassium 4.1 mmol/L (3.5-5.0)
[2023-03-21 10:48] LABS: C Reactive Protein 53.22 mg/L (<8.01)
[2023-03-21] MEDS: cefTRIAXone 1 gm/50 mL D5W 1 GM/50 ML BAG IV SCH (12:16)
[2023-03-21 13:28] VITALS: BP 156/82
[2023-03-22] MEDS ORDERED: Vancomycin Trough Check NOTE FOLLOW UP ONE (06:00)
[2023-03-23 14:56] LABS: Anaplasma phagocytophilum Negative (Negative); B. miyamotoi PCR, B Negative (Negative); Babesia divergens/MO-1 Negative (Negative); Babesia ducani Negative (Negative); Ehrlichia chaffeensis Negative (Negative); Ehrlichia ewingii/canis Negative (Negative); Ehrlichia muris eauclairensis Negative (Negative)
== END 2023-03-21 14:30 | disposition home or self-care (01) | DRG 194 ==
LOC: ED 22:05 → EDHOLD 22:05 → SUATTDRO 03-19 03:22 → EDHOLD 03-19 08:35 → MED 03-19 09:35 → UNDODISOB 03-20 08:00
PROVIDERS: ADMIT Internal Medicine; ATTEND Internal Medicine